=== PATIENT | female | born 1960 | race Caucasian/White ===

== ENCOUNTER 2016-04-01 01:22 | Emergency (ER) | payer MEDICAID ==
[~2016-04-01] VITALS: Ht 157.5 cm; Wt 63.0 kg
[~2016-04-01 01:22] MED LIST: ARIP30 PO; ATOR40TA PO; CYCL-36 PO; IBUP-232 PO; JANU50TA9 PO; LISI-357 PO; LORA0.5T PO; TRAZ100 PO; ZOLP10TA3 PO
[2016-04-01 01:25] VITALS: BP 146/68; PULSE 59; RESP 20; TEMP 97.4; O2SAT 100
[2016-04-01] MEDS ORDERED: BENZTROPINE MESYLATE 2 MG/2 ML VIAL IM ONE (03:00)
[2016-04-01] MEDS ORDERED: HYDROmorphone HCL PF 1 MG/ML VIAL IM ONE (03:00)
--- NOTE | 2016-04-01 03:33 | PD ---
HPI Chief Complaint: Pain: Acute or Chronic Time Seen by Provider: 02:41 Travel History International Travel<30 days: No Contact w/Intl Traveler<30days: No Traveled to known affect area: No History of Present Illness HPI This is a 55-year-old female who has a history of schizophrenia who presents to the emergency department with severe left-sided neck pain that started earlier this evening, constant, unable to move her neck to the right side, radiating to her shoulder and her upper chest. She's never had pain like this before. She is on medications for her psychiatric disease but isn't sure which ones. She denies any injury. He took Tylenol and ibuprofen at home but that didn't help. PFSH Past Medical History Hx Anticoagulant Therapy: No Bipolar Disorder: Yes Anxiety: Yes Depression: Yes Cardiovascular Problems: Yes (HTN) High Cholesterol: Yes Chemotherapy: No Cerebrovascular Accident: No Diabetes: Yes Patient Takes Glucophage: Yes Diminished Hearing: No Hypertension: Yes Psychiatric: Yes (schizophrenia) Respiratory: No Immunizations Current: Yes ?: Not LMP: TUBAL Past Surgical History Cholecystectomy: Yes Hysterectomy: No Social History Alcohol Use: No Tobacco Use: No Substance Use: No Allergies-Medications (Allergen,Severity, Reaction): Coded Allergies: Codeine (Verified Adverse Reaction, Intermediate, hives, 04/01/16) Reported Meds & Prescriptions Reported Meds & Active Scripts Active Flexeril (Cyclobenzaprine HCl) 10 Mg Tab 10 Mg PO TID Motrin (Ibuprofen) 600 Mg Tab 600 Mg PO QID PRN GIVE WITH FOOD Reported Lorazepam 0.5 Mg Tab 0.5 Mg PO BID Trazodone Hcl (Trazodone HCl) 100 Mg Tab 150 Mg PO HS Janumet (Sitagliptin Phosphate/Metformin HCl) 1 Tab Tab 1 Tab PO BID ADMINISTER WITH MEALS Atorvastatin 40 mg (Atorvastatin Calcium) 40 Mg Tab 40 Mg PO HS Zolpidem Tartrate 10 Mg Tab 10 Mg PO HS Lisinopril 5 mg (Lisinopril) 5 Mg Tab 40 Mg PO DAILY Abilify 30 mg (Aripiprazole) 30 Mg Tab 30 Mg PO HS Review of Systems Except as stated in HPI: all other systems reviewed are Neg Physical Exam Narrative GENERAL: Well-nourished, well-developed patient. SKIN: Warm and dry. HEAD: Normocephalic. EYES: No scleral icterus. No injection or drainage. NECK: Supple, trachea midline. CARDIOVASCULAR: Regular rate and rhythm without murmurs. RESPIRATORY: Breath sounds equal bilaterally. No accessory muscle use. GASTROINTESTINAL: Abdomen soft, non-tender, nondistended. MUSCULOSKELETAL: Marked tender to light touch over the left paracervical muscles and upper left trapezius. Neck is rotated to the left and patient is unable to return her neck to midline. Data Data Last Documented VS Vital Signs Date Time Temp Pulse Resp B/P Pulse Ox O2 Delivery O2 Flow Rate FiO2 04/01/16 02:10 59 20 04/01/16 01:25 97.4 146/68 100 Room Air Orders Benztropine Inj (Cogentin Inj) (04/01/16 03:00) Hydromorphone Pf Inj (Dilaudid Pf Inj) (04/01/16 03:00) [facility] Medical Decision Making Medical Screen Exam Complete: Yes Emergency Medical Condition: Yes Interpretation(s) Afebrile, no tachycardia, mild hypertension Differential Diagnosis Muscle spasm, torticollis, cervical strain Narrative Course This is a 55-year-old female who presents to the emergency department with pain on the left side of her neck and some difficulty moving her neck. She doesn't history of schizophrenia and from what I can tell from prior visits is on Abilify. She was given a dose of IM Dilaudid as well as IM benztropine for possible torticollis. Patient's symptoms improved significantly. She'll be discharged on pain control and benztropine Diagnosis Primary Impression: Torticollis, acute Patient Instructions: General Instructions Additional Instructions: If you develop severe chest pain, shortness of breath, sweating, lightheadedness , dizziness or difficulty breathing return to the emergency department immediately. Followup with your primary care physician in 2-3 days if your symptoms are not resolved. Med/Other Pt SpecificInfo: Prescription(s) given Scripts Naproxen 500 Mg [id number] Mg PO BID PRN (PAIN SCALE 4 TO 10) #20 TAB Ref 0 Prov:Marquita Escalante MD 04/01/16 Benztropine 1 Mg Tab1 Mg PO BID 7 Days Ref 0 Prov:Marqutia Escalante MD 04/01/16 Disposition: 01 DISCHARGE HOME Condition: Stable Marquita Escalante MD Apr 01, 2016 03:33
[2016-04-01] MEDS ORDERED: BENZ1TAB PO (03:47)
[2016-04-01] MEDS ORDERED: NAPR500T PO (03:47)
== END 2016-04-01 04:16 | disposition home or self-care (01) ==
LOC: NEPC 01:22
DX: M43.6 Torticollis (principal); I10 Essential (primary) hypertension; E11.9 Type 2 diabetes mellitus without complications; E78.00 Pure hypercholesterolemia, unspecified; Z86.59 Personal history of other mental and behavioral disorders; Z79.84 Long term (current) use of oral hypoglycemic drugs
CPT/HCPCS: 96372; 99283; J0515; J1170

== ENCOUNTER 2016-04-24 10:37 | Emergency (ER) | payer MEDICAID ==
[~2016-04-24] VITALS: Ht 157.5 cm; Wt 66.0 kg
[~2016-04-24 10:37] MED LIST changes: +BENZ1TAB PO; +NAPR500T PO
[2016-04-24 10:38] VITALS: BP 133/59; PULSE 84; RESP 14; TEMP 97.9; O2SAT 98
--- NOTE | 2016-04-24 11:02 | PD ---
HPI Chief Complaint: Pain: Acute or Chronic Time Seen by Provider: 11:02 Travel History International Travel<30 days: No Contact w/Intl Traveler<30days: No Traveled to known affect area: No History of Present Illness HPI 55-year-old female presents to the emergency Department with complaint of left wrist pain times one week. Denies injury or strain. Denies paresthesias, loss of sensation, decreased range of motion to the affected extremity. 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 Denies fever, chills, nausea, vomiting. Does not work and denies using her left hand, wrist excessively. Pain is aggravated when doing housework, such as dishes. Pain is aggravated with palpation and movement. No known relieving factors. Has tried taking Advil with no relief of symptoms. Has not tried any other treatments or medications to alleviate her symptoms. Dr. Maza is primary care provider. Allergies to codeine. History of diabetes, hypertension, high cholesterol. No other modifying factors or associated signs and symptoms. PFSH Past Medical History Hx Anticoagulant Therapy: No Bipolar Disorder: Yes Anxiety: Yes Depression: Yes Cardiovascular Problems: Yes (HTN) High Cholesterol: Yes Chemotherapy: No Cerebrovascular Accident: No Diabetes: Yes Diminished Hearing: No Hypertension: Yes Psychiatric: Yes (schizophrenia) Respiratory: No Immunizations Current: Yes ?: Not Past Surgical History Cholecystectomy: Yes Hysterectomy: No Social History Alcohol Use: No Tobacco Use: No Substance Use: No Allergies-Medications (Allergen,Severity, Reaction): Coded Allergies: Codeine (Verified Adverse Reaction, Intermediate, hives, 04/24/16) Reported Meds & Prescriptions Reported Meds & Active Scripts Active Ibuprofen 800 Mg Tab 800 Mg PO Q6HR PRN Review of Systems Except as stated in HPI: all other systems reviewed are Neg Physical Exam Narrative GENERAL: Well-nourished, well-developed female patient, in no acute distress; afebrile, nontoxic-appearing SKIN: Warm and dry. HEAD: Atraumatic. Normocephalic. EYES: Pupils equal and round. No scleral icterus. No injection or drainage. ENT: Mucosa pink and moist. Airway patent. NECK: Trachea midline. CARDIOVASCULAR: Regular rate. RESPIRATORY: No accessory muscle use. GASTROINTESTINAL: Flat. MUSCULOSKELETAL: Left wrist is mildly edematous to the lateral aspect and with tenderness on palpation; without erythema, ecchymosis; no obvious deformity; decreased lawn care technician strength; with full range of motion. Left upper extremity is supple and non-tense with 2+ radial pulse and sensory intact. No obvious deformities. No clubbing. No cyanosis. NEUROLOGICAL: Awake and alert. Oriented 3. No obvious cranial nerve deficits. Motor grossly within normal limits. Normal speech. PSYCHIATRIC: Appropriate mood and affect; insight and judgment normal. Data Data Last Documented VS Vital Signs Date Time Temp Pulse Resp B/P Pulse Ox O2 Delivery O2 Flow Rate FiO2 04/24/16 10:38 97.9 84 14 133/59 98 Orders Wrist, Complete ([id number]) (04/24/16 10:58) Ibuprofen (Motrin) (04/24/16 11:15) Splint Or Brace Apply/Monitor (04/24/16 11:54) [facility] Medical Decision Making Medical Screen Exam Complete: Yes Emergency Medical Condition: Yes Medical Record Reviewed: Yes Differential Diagnosis Arthritis, carpal tunnel, wrist sprain Narrative Course 55-year-old female with left wrist pain and denies known injury. Left approximately supple and non-tense with 2+ radial pulse and sensory intact. Ibuprofen ordered. Left wrist x-ray ordered. 1156: Left wrist x-ray concludes mild osteoarthritis of the radiocarpal, triscaphe, first carpometacarpal and distal radioulnar joints. Wrist splint ordered. Ibuprofen prescribed for home. Patient is medically cleared and stable for discharge. Discussed reasons to return to the emergency department. Instructed patient to follow up with primary care provider. Patient agrees with treatment plan. The patients vital signs are stable and the patient is stable for outpatient follow-up and treatment. Patient discharged home, stable and in no acute distress. Diagnosis Primary Impression: Osteoarthritis of left wrist Qualified Code: M19.032 - Osteoarthritis of left wrist, unspecified osteoarthritis type Referrals: Primary Care Physician Patient Instructions: General Instructions, Osteoarthritis (ED) Additional Instructions: Tylenol or ibuprofen as directed and as needed to reduce pain Rest, ice, compress, and elevate extremity to decrease pain and inflammation Wrist Splint for support Avoid aggravating activity; increase activity as tolerated Follow-up with primary care provider Return to the emergency department immediately with worsening symptoms Med/Other Pt SpecificInfo: Prescription(s) given Scripts Ibuprofen 800 Mg [id number] Mg PO Q6HR PRN (PAIN) #30 TAB Ref 0 Prov:Ana Cristina Ozuna 04/24/16 Disposition: 01 DISCHARGE HOME Condition: Stable Ana Cristina Ozuna Apr 24, 2016 11:02
[2016-04-24] MEDS ORDERED: IBUPROFEN 800 MG TAB PO ONE (11:15)
--- NOTE | 2016-04-24 11:46 | RADRPT ---
EXAM DATE/TIME: 04/24/2016 11:36 [facility] COMPARISON: No previous studies available for comparison. INDICATIONS : Left wrist pain, swelling for 3 days with no known injury MEDICAL HISTORY : None. SURGICAL HISTORY : None. ENCOUNTER: Initial ACUITY: 3 days PAIN SCORE: 7/10 LOCATION: Left entire wrist FINDINGS: Bones of the left wrist are intact and normally aligned. There is mild osteoarthritis of the radiocar pal, triscaphe, first carpometacarpal and distal radioulnar joints. No erosions are seen. Radiographi c appearance of the soft tissues within normal limits. CONCLUSION: Minimal degenerative changes as above. Otherwise normal radiographic appearance of the left wrist. Isreal Lima MD on April 24, 2016 at 11:43 Board Certified Radiologist. This report was verified electronically.
[2016-04-24] MEDS ORDERED: IBUP800T23 PO (11:56)
== END 2016-04-24 12:18 | disposition home or self-care (01) ==
LOC: NEPB 10:37
DX: M19.032 Primary osteoarthritis, left wrist (principal); I10 Essential (primary) hypertension; E78.00 Pure hypercholesterolemia, unspecified; E11.9 Type 2 diabetes mellitus without complications
CPT/HCPCS: 73110; 99283; L3908

== ENCOUNTER 2016-07-20 16:41 | Emergency (ER) | payer MEDICAID ==
[~2016-07-20] VITALS: Ht 157.5 cm; Wt 68.0 kg
[~2016-07-20 16:41] MED LIST changes: -ARIP30 PO; -ATOR40TA PO; -BENZ1TAB PO; -CYCL-36 PO; -IBUP-232 PO; +IBUP800T23 PO; -JANU50TA9 PO; -LISI-357 PO; -LORA0.5T PO; -NAPR500T PO; -TRAZ100 PO; -ZOLP10TA3 PO
[2016-07-20 16:44] VITALS: BP 138/61; PULSE 70; RESP 16; TEMP 98.8; O2SAT 99
--- NOTE | 2016-07-20 16:52 | PD ---
Physical Exam Time Seen by Provider: 16:50 Narrative 56 y/o female here with 5 days of abdominal pain, n/v/d. Sent by her physician for evaluation. Vital signs reviewed. Seen at triage desk. Awaiting bed placement. Data Data Last Documented VS Vital Signs Date Time Temp Pulse Resp B/P Pulse Ox O2 Delivery O2 Flow Rate FiO2 07/20/16 16:44 98.8 70 16 138/61 99 MDM Medical Record Reviewed: Yes Supervised Visit with KOLTON: Ryne Ann July 20, 2016 16:52
[2016-07-20] MEDS ORDERED: [UNRECOGNIZED DRUG - REMARK] (17:28)
[2016-07-20] MEDS ORDERED: LANTUS2P SQ (17:28)
[2016-07-20] MEDS ORDERED: SODIUM CHLORIDE 0.9% FLUSH 10 ML FLUSH IV FLUSH PRN ×2 (17:30→17:45)
[2016-07-20] MEDS ORDERED: SODIUM CHLOR 0.9% 1000 ML INJ 1,000 ML IV SCH (17:41)
[2016-07-20] MEDS ORDERED: MORPHINE SULFATE 4 MG/ML INJ IV PUSH ONE (17:45)
[2016-07-20] MEDS ORDERED: ONDANSETRON HCL 4 MG/2 ML VIAL IVP ONE (17:45)
--- NOTE | 2016-07-20 18:09 | PD ---
HPI . Abdominal pain Chief Complaint: Abdominal Pain Time Seen by Provider: 17:28 Travel History International Travel<30 days: No Contact w/Intl Traveler<30days: No Traveled to known affect area: No History of Present Illness HPI Patient presents complaining with a 4-5 day history of left-sided abdominal and flank pain. He describes the pain is intermittent. She rates it as 7/10. Pain is associated with nausea and diarrhea. Pain is exacerbated by eating. No relieving factors. She describes her diarrhea as watery and states that she has 4-5 episodes per day. She has had a subjective fever as well as headache. She denies urinary tract symptoms such as dysuria, frequency or urgency. PFSH Past Medical History Hx Anticoagulant Therapy: No Bipolar Disorder: Yes Anxiety: Yes Depression: Yes Cardiovascular Problems: Yes (HTN) High Cholesterol: Yes Chemotherapy: No Cerebrovascular Accident: No Diabetes: Yes Patient Takes Glucophage: No Diminished Hearing: No Hypertension: Yes Psychiatric: Yes (schizophrenia) Respiratory: No Immunizations Current: Yes ?: Not Menopausal: Yes Past Surgical History Cholecystectomy: Yes Hysterectomy: No Social History Alcohol Use: No Tobacco Use: No Substance Use: No Allergies-Medications (Allergen,Severity, Reaction): Coded Allergies: Codeine (Verified Adverse Reaction, Intermediate, hives, 07/20/16) Reported Meds & Prescriptions Reported Meds & Active Scripts Active Reported [unk cholesterol] HS Lantus Inj (Insulin Glargine) 1,000 Unit/10 Ml Vial 35 Units SQ HS Review of Systems Except as stated in HPI: all other systems reviewed are Neg General / Constitutional: Positive: Fever, Chills HENT: Positive: Headaches Gastrointestinal: Positive: Nausea, Diarrhea, Abdominal Pain, No: Vomiting Genitourinary: Positive: Flank Pain, No: Urgency, Frequency, Dysuria Physical Exam Narrative Vital Signs Date Time Temp Pulse Resp B/P Pulse Ox O2 Delivery O2 Flow Rate FiO2 07/20/16 16:44 98.8 70 16 138/61 99 GENERAL: Awake and alert and in no acute distress. SKIN: Warm and dry. HEAD: Atraumatic. Normocephalic. EYES: Pupils equal and round. Sclera are anicteric. ENT: No nasal bleeding or discharge. Mucous membranes pink and moist. NECK: Trachea midline. Neck is supple. CARDIOVASCULAR: Regular rate and rhythm. Heart sounds are normal. RESPIRATORY: No accessory muscle use. Lungs are clear with full air movement throughout. GASTROINTESTINAL: Abdomen soft. Diffuse left-sided abdominal tenderness. No guarding or rebound. Normal bowel sounds. Nondistended. No left CVA tenderness. MUSCULOSKELETAL: No obvious deformities. No edema. NEUROLOGICAL: Awake and alert. No obvious cranial nerve deficits. Motor grossly within normal limits. Normal speech. PSYCHIATRIC: Appropriate mood and affect; insight and judgment normal. Data Data Last Documented VS Vital Signs Date Time Temp Pulse Resp B/P Pulse Ox O2 Delivery O2 Flow Rate FiO2 07/20/16 19:02 100 Room Air 07/20/16 16:44 98.8 70 16 138/61 Orders Complete Blood Count With Diff (07/20/16 17:29) Comprehensive Metabolic Panel (07/20/16 17:29) Lipase (07/20/16 17:29) Urinalysis - C+S If Indicated (07/20/16 17:29) Iv Access Insert/Monitor (07/20/16 17:29) Ecg Monitoring (07/20/16 17:29) Oximetry (07/20/16 17:29) Sodium Chloride 0.9% Flush (Ns Flush) (07/20/16 17:30) Ct Abd/Pel W Iv Contrast(Rout) (07/20/16 17:41) Morphine Inj (Morphine Inj) (07/20/16 17:45) Ondansetron Inj (Zofran Inj) (07/20/16 17:45) Sodium Chlor 0.9% 1000 Ml Inj (Ns 1000 M (07/20/16 17:41) Sodium Chloride 0.9% Flush (Ns Flush) (07/20/16 17:45) Ceftriaxone Inj (Rocephin Inj) (07/20/16 19:30) Labs Laboratory Tests Test 07/20/16 17:44 White Blood Count 9.2 TH/MM3 Red Blood Count 4.54 MIL/MM3 Hemoglobin 12.4 GM/DL Hematocrit 37.6 % Mean Corpuscular Volume 82.9 FL Mean Corpuscular Hemoglobin 27.4 PG Mean Corpuscular Hemoglobin 33.1 % Concent Red Cell Distribution Width 13.3 % Platelet Count 304 TH/MM3 Mean Platelet Volume 8.5 FL Neutrophils (%) (Auto) 42.7 % Lymphocytes (%) (Auto) 45.1 % Monocytes (%) (Auto) 6.1 % Eosinophils (%) (Auto) 5.5 % Basophils (%) (Auto) 0.6 % Neutrophils # (Auto) 3.9 TH/MM3 Lymphocytes # (Auto) 4.2 TH/MM3 Monocytes # (Auto) 0.6 TH/MM3 Eosinophils # (Auto) 0.5 TH/MM3 Basophils # (Auto) 0.1 TH/MM3 CBC Comment DIFF FINAL Differential Comment Urine Color YELLOW Urine Turbidity CLEAR Urine pH 6.0 Urine Specific [place] 1.015 Urine Protein NEG mg/dL Urine Glucose (UA) NEG mg/dL Urine Ketones NEG mg/dL Urine Occult Blood NEG Urine Nitrite NEG Urine Bilirubin NEG Urine Urobilinogen LESS THAN 2.0 MG/DL Urine Leukocyte Esterase MOD Urine RBC LESS THAN 1 /hpf Urine WBC 6 /hpf Urine Squamous Epithelial 4 /hpf Cells Urine Mucus FEW /lpf Microscopic Urinalysis Comment CULT NOT INDICATED Sodium Level 136 MEQ/L Potassium Level 3.6 MEQ/L Chloride Level 101 MEQ/L Carbon Dioxide Level 28.0 MEQ/L Anion Gap 7 MEQ/L Blood Urea Nitrogen 8 MG/DL Creatinine 0.64 MG/DL Estimat Glomerular Filtration 96 ML/MIN Rate Random Glucose 202 MG/DL Calcium Level 8.4 MG/DL Total Bilirubin 0.5 MG/DL Aspartate Amino Transf 14 U/L (AST/SGOT) Alanine Aminotransferase 25 U/L (ALT/SGPT) Alkaline Phosphatase 92 U/L Total Protein 7.5 GM/DL Albumin 3.4 GM/DL Lipase 159 U/L [facility] Medical Decision Making Medical Screen Exam Complete: Yes Emergency Medical Condition: Yes Differential Diagnosis Differential diagnosis of abdominal pain includes but is not limited to gastritis, pancreatitis, hepatitis, gastroenteritis, gallbladder disease, constipation, urinary retention, UTI, peptic ulcer disease, diverticulitis or appendicitis Narrative Course Patient presents complaining of left-sided abdominal pain associated with loose stools. My #1 diagnosis at this time is diverticulitis. I have ordered IV fluids, IV analgesics routine labs and a CT of her abdomen/pelvis. Last Impressions Abdomen/Pelvis CT 07/20/16 1741 Signed Impressions: Service Date/Time: Wednesday, July 20, 2016 18:19 - CONCLUSION: 1. No acute findings. Specifically no bowel obstruction. No obstructive uropathy. Colonic diverticula without evidence for diverticulitis. Rubén Naranjo MD CBC & BMP Diagram 07/20/16 17:44 LFTs are normal. UA is positive for leukocyte esterase. There are 6 white cells. She will be treated for UTI. Diagnosis Primary Impression: Abdominal pain Qualified Code: R10.12 - Left upper quadrant pain Additional Impression: UTI (urinary tract infection) Qualified Code: N30.00 - Acute cystitis without hematuria Patient Instructions: Abdominal Pain (ED), Acute Diarrhea (ED), General Instructions, Urinary Tract Infection in Women (DC) Med/Other Pt SpecificInfo: Prescription(s) given Scripts Nitrofurantoin Monohydrate Macrocrystals (Macrobid)100 Mg [id number] Mg PO BID 7 Days Ref 0 Prov:Mel Aranda MD 07/20/16 Disposition: 01 DISCHARGE HOME Condition: Stable Mel Aranda MD July 20, 2016 18:09
[2016-07-20] MEDS ORDERED: IOHEXOL 350 MG/ML 10 ML VIAL (for RAD DIAG) IV ONE (18:19)
--- NOTE | 2016-07-20 18:54 | RADRPT ---
EXAM DATE/TIME: 07/20/2016 18:19 [facility] COMPARISON: No previous studies available for comparison. INDICATIONS : Left flank and lower quadrant pain. IV CONTRAST: 70 cc Omnipaque 350 (iohexol) IV ORAL CONTRAST: No oral contrast ingested. RADIATION DOSE: 6.97 CTDIvol (mGy) MEDICAL HISTORY : Cardiovascular disease. Hypertension. Diabetes mellitus type 2. SURGICAL HISTORY : Cholecystectomy. Tubal ligation. ENCOUNTER: Initial ACUITY: 4 - 6 days PAIN SCALE: 8/10 LOCATION: Left flank lower qaudrant TECHNIQUE: Volumetric scanning of the abdomen and pelvis was performed. Using automated exposure control and ad justment of the mA and/or kV according to patient size, radiation dose was kept as low as reasonably achievable to obtain optimal diagnostic quality images. FINDINGS: Lung bases are clear. No significant abnormality in the liver, spleen, adrenals, kidneys or pancreas. Previous cholecystectomy. No pelvic masses. No adenopathy. There is no free fluid. No bowel obstruction. Colonic diverticula wi thout diverticulitis. CONCLUSION: 1. No acute findings. Specifically no bowel obstruction. No obstructive uropathy. Colonic diverticula without evidence for diverticulitis. Rubén Naranjo MD on July 20, 2016 at 18:49 Board Certified Radiologist. This report was verified electronically.
[2016-07-20 19:00] LABS: AUTOMATED NEUTROPHIL # 3.9 TH/MM3 (1.8-7.7); BASOPHIL # 0.1 TH/MM3 (0-0.2); BASOPHIL % 0.6 % (0.0-2.0); EOSINOPHIL # 0.5 TH/MM3 (0-0.4); EOSINOPHIL % 5.5 % (0.0-4.0); HEMATOCRIT 37.6 % (35.0-46.0); HEMO FLAGS DIFF FINAL; LYMPH % 45.1 % (9.0-44.0); LYMPHOCYTE # 4.2 TH/MM3 (1.0-4.8); MEAN CELL VOLUME 82.9 FL (80.0-100.0); MEAN CORPUSCULAR HEMOGLOBIN 27.4 PG (27.0-34.0); MEAN CORPUSCULAR HGB CONC 33.1 % (32.0-36.0); MONO % 6.1 % (0.0-8.0); NEUT % 42.7 % (16.0-70.0); PLATELET COUNT 304 TH/MM3 (150-450); RED BLOOD COUNT 4.54 MIL/MM3 (4.00-5.30); RED CELL DISTRIBUTION WIDTH 13.3 % (11.6-17.2); WHITE BLOOD COUNT 9.2 TH/MM3 (4.0-11.0)
[2016-07-20 19:02] VITALS: O2SAT 100
[2016-07-20 19:14] LABS: BLOOD, URINE NEG (NEG); COMMENT (UR) CULT NOT INDICATED; CULTURE IF INDICATED CULT NOT INDICATED; GLUCOSE,URINE NEG (NEG); KETONE, URINE NEG (NEG); MUCUS URINE FEW /lpf (OCC); NITRITE,URINE NEG (NEG); SQUAMOUS EPITHELIAL CELL URINE 4 /hpf (0-5); URINE COLOR YELLOW (YELLW/STRAW)
[2016-07-20 19:18] LABS: ANION GAP 7 MEQ/L (5-15); AST (GOT) 14 U/L (15-37); BLOOD UREA NITROGEN 8 MG/DL (7-18); CHLORIDE 101 MEQ/L (98-107); GLOMERULAR FILTRATION RATE 96 ML/MIN (>89); POTASSIUM 3.6 MEQ/L (3.5-5.1); SODIUM (NA) 136 MEQ/L (136-145)
[2016-07-20 19:22] LABS: ALKALINE PHOSPHATASE 92 U/L (45-117); ALT (GPT) 25 U/L (10-53); TOTAL BILIRUBIN ADULT 0.5 MG/DL (0.2-1.0)
[2016-07-20] MEDS ORDERED: MACR100C2 PO (19:26)
[2016-07-20] MEDS ORDERED: cefTRIAXone INJ 1,000 MG in SODIUM CHLORIDE 0.9% INJ 25 ML IV ONE (19:45)
[2016-07-20 20:00] VITALS: BP 137/60; PULSE 70; RESP 16; O2SAT 96
== END 2016-07-20 20:21 | disposition home or self-care (01) ==
LOC: NEPD 16:41
DX: R10.9 Unspecified abdominal pain (principal); N39.0 Urinary tract infection, site not specified; I10 Essential (primary) hypertension; E11.9 Type 2 diabetes mellitus without complications; Z79.4 Long term (current) use of insulin
CPT/HCPCS: 74177; 80053; 81001; 83690; 85025; 96374; 96375; 99284; J0696; J2270; J2405; J7030; Q9967

== ENCOUNTER 2016-07-28 19:18 | Emergency (ER) | payer MEDICAID ==
[~2016-07-28] VITALS: Ht 167.6 cm; Wt 65.0 kg
[~2016-07-28 19:18] MED LIST changes: -IBUP800T23 PO; +LANTUS2P SQ; +MACR100C2 PO; +[UNRECOGNIZED DRUG - REMARK]
[2016-07-28 19:19] VITALS: BP 144/66; PULSE 66; RESP 15; TEMP 98.5; O2SAT 98
--- NOTE | 2016-07-28 19:31 | PD ---
HPI . left groin and leg pain x 1 day Chief Complaint: Musculoskeletal Complaint Time Seen by Provider: 19:31 Travel History International Travel<30 days: No Contact w/Intl Traveler<30days: No Traveled to known affect area: No History of Present Illness HPI 56-year-old female with diabetes here with complaints of left leg/groin pain. Patient says it just started over the blue. She reports a jolting sensation that is running down her leg. She tells me she has not tried any medications to improve this pain. She denies any recent injury. She denies any recent travel or shortness of breath. She has no leg swelling. She tells me that she is not taking anything for pain. PFSH Past Medical History Hx Anticoagulant Therapy: No Bipolar Disorder: Yes Anxiety: Yes Depression: Yes Cardiovascular Problems: Yes (HTN) High Cholesterol: Yes Chemotherapy: No Cerebrovascular Accident: No Diabetes: Yes Patient Takes Glucophage: Yes Diminished Hearing: No Hypertension: Yes Psychiatric: Yes (schizophrenia) Respiratory: No Immunizations Current: Yes Tetanus Vaccination: Unknown Influenza Vaccination: No Menopausal: Yes Past Surgical History Cholecystectomy: Yes Hysterectomy: No Social History Alcohol Use: No Tobacco Use: No Substance Use: No Allergies-Medications (Allergen,Severity, Reaction): Coded Allergies: Codeine (Verified Adverse Reaction, Intermediate, hives, 07/28/16) Reported Meds & Prescriptions Reported Meds & Active Scripts Active Medrol Dosepak (Methylprednisolone) 4 Mg Dspk 4 Mg PO DIRECTED Per Pharmacist direction Reported Janumet (Sitagliptin-Metformin) 50-500 Mg Tab 2 Tab PO DAILY [unk cholesterol] HS Lantus Inj (Insulin Glargine) 1,000 Unit/10 Ml Vial 35 Units SQ HS Review of Systems General / Constitutional: No: Fever Eyes: No: Visual changes HENT: No: Headaches Cardiovascular: No: Chest Pain or Discomfort Respiratory: No: Shortness of Breath Gastrointestinal: No: Abdominal Pain Genitourinary: No: Dysuria Musculoskeletal: Positive: Pain (left leg pain) Skin: No Rash Neurologic: No: Weakness Psychiatric: No: Depression Endocrine: No: Polydipsia Hematologic/Lymphatic: No: Easy Bruising Physical Exam Narrative GENERAL: AAO x 3, no acute distress, Well-nourished, well-developed patient. SKIN: Warm and dry. No visible rashes or bruising. HEAD: Normocephalic and atraumatic. EYES: No scleral icterus. No injection or drainage. EOM intact, PERRLA ENT: No nasal drainage noted. Mucous membranes pink. Airway patent. NECK: Supple, trachea midline. No JVD. CARDIOVASCULAR: Regular rate and rhythm without murmurs, gallops, or rubs. RESPIRATORY: Breath sounds equal bilaterally. No accessory muscle use. No rhonchi or rales. GASTROINTESTINAL: visual inspection normal EXTREMITIES: No cyanosis or edema. SLR + left side, FULL ROM b/l legs NEURO: strength 5/5 LE BACK: Nontender without obvious deformity. No CVA tenderness. PSYCH: AAO x 3, normal affect. Data Data Last Documented VS Vital Signs Date Time Temp Pulse Resp B/P Pulse Ox O2 Delivery O2 Flow Rate FiO2 07/28/16 19:27 16 07/28/16 19:19 98.5 66 144/66 98 Room Air MDM Medical Decision Making Medical Screen Exam Complete: Yes Emergency Medical Condition: Yes Medical Record Reviewed: Yes Differential Diagnosis acute on chronic pain, sciatica, drug seeking, Narrative Course This is a 56-year-old female complaining of acute groin and left leg pain. Denies any recent injury, travel or shortness of breath. My index of suspicion is very low for DVT. Exam reveals sciatica. I discussed with her and recommend steroids. We discussed increased blood sugars. Initially upon questioning patient tells me she is not taking any pain medications. I look her up on [employer] and she was given 90 tabs of oxycodone on 07/06/16. When I discuss with her she says that doesn't matter because she is using that for her back and this is something different. I explained that pain meds will work for any pain. She tells me she did not know that. I recommend f/u with her PCP. Diagnosis Primary Impression: Sciatica Qualified Code: M54.32 - Sciatica of left side Patient Instructions: General Instructions Additional Instructions: Please return to emergency department if your symptoms return or worsen. Follow up with your primary care provider. Take medications as prescribed. Follow-up with your primary care provider. The steroids will make your blood sugars increase, try to compensate by eating less carbs or ask your Primary care provider for sliding scale coverage. Med/Other Pt SpecificInfo: Prescription(s) given Scripts Methylprednisolone Dosepak (Medrol Dosepak)4 Mg Dspk4 Mg PO DIRECTED #1 DSPK Ref 0 Per Pharmacist direction Prov:Michael Lester MD 07/28/16 Disposition: 01 DISCHARGE HOME Condition: Stable Prachi Real July 28, 2016 19:31
[2016-07-28] MEDS ORDERED: SITA1TAB2 PO (19:33)
[2016-07-28] MEDS ORDERED: JANU50TA4 PO (19:33)
[2016-07-28] MEDS ORDERED: MEDR4PAK PO (19:40)
== END 2016-07-28 19:55 | disposition home or self-care (01) ==
LOC: NEPK 19:18
DX: M54.32 Sciatica, left side (principal)
CPT/HCPCS: 99283

== ENCOUNTER 2016-12-30 12:23 | Emergency (ER) | payer MEDICAID ==
[~2016-12-30] VITALS: Ht 157.5 cm; Wt 67.0 kg
[~2016-12-30 12:23] MED LIST changes: +JANU50TA4 PO; -MACR100C2 PO; +MEDR4PAK PO
[2016-12-30 12:28] VITALS: BP 145/64; PULSE 79; RESP 12; TEMP 98.6; O2SAT 97
[2016-12-30] MEDS ORDERED: cholesterol med PO ×2 (12:45)
[2016-12-30 12:49] VITALS: BP 136/86; PULSE 73; RESP 16; O2SAT 97
[2016-12-30] MEDS ORDERED: ARIP1TAB5 PO ×2 (12:49)
--- NOTE | 2016-12-30 12:49 | PD ---
HPI Chief Complaint: Chest Pain Time Seen by Provider: 12:35 Travel History International Travel<30 days: No Contact w/Intl Traveler<30days: No Traveled to known affect area: No History of Present Illness HPI 56-year-old female complains of headache and chest pain. Patient states that she started having throbbing headache left-sided head is yesterday. Patient denies any visual change. Patient complains of nausea vomiting and photophobia with the headache. Patient denies any neck pain. Patient denies fever chills. Patient states that she started having left-sided chest pain since this morning. Patient states the chest pain as aching pain started in the left chest with radiation to the left arm. Patient denies any coughing congestion. Patient denies abdominal pain. Patient denies any focal weakness or numbness of extremity. Patient has history hypertension, diabetes, hyperlipidemia. Patient is a nonsmoker. Patient denies family history of heart disease. Patient denies history of CAD. Patient states that she had a stress test done a few years ago and was normal. PFSH Past Medical History Hx Anticoagulant Therapy: No Bipolar Disorder: Yes Anxiety: Yes Depression: Yes Cardiovascular Problems: Yes (HTN) High Cholesterol: Yes Chemotherapy: No Cerebrovascular Accident: No Diabetes: Yes Diminished Hearing: No Hypertension: Yes Psychiatric: Yes (schizophrenia) Respiratory: No Immunizations Current: Yes Menopausal: Yes Past Surgical History Cholecystectomy: Yes Hysterectomy: No Social History Alcohol Use: No Tobacco Use: No Substance Use: No Allergies-Medications (Allergen,Severity, Reaction): Coded Allergies: codeine (Unverified Adverse Reaction, Intermediate, hives, 12/30/16) Reported Meds & Prescriptions Reported Meds & Active Scripts Active Reported Abilify (Aripiprazole) 10 Mg Tab Unknown Dose PO DAILY [cholesterol med] Unknown Dose PO DAILY Janumet (Sitagliptin-Metformin) 50-500 Mg Tab 1 Tab PO DAILY Lantus Inj (Insulin Glargine) 1,000 Unit/10 Ml Vial 35 Units SQ HS Review of Systems General / Constitutional: No: Fever Eyes: No: Visual changes HENT: No: Headaches Cardiovascular: Positive: Chest Pain or Discomfort Respiratory: No: Shortness of Breath Gastrointestinal: No: Abdominal Pain Genitourinary: No: Dysuria Musculoskeletal: No: Pain Skin: No Rash Neurologic: No: Weakness Psychiatric: No: Depression Endocrine: No: Polydipsia Hematologic/Lymphatic: No: Easy Bruising Physical Exam Narrative GENERAL: Well-nourished, well-developed patient. SKIN: Focused skin assessment warm/dry. HEAD: Normocephalic. EYES: No scleral icterus. No injection or drainage. Pupils 2 mm equal reactive. NECK: Supple, trachea midline. No JVD or lymphadenopathy. No meningismus CARDIOVASCULAR: Regular rate and rhythm without murmurs, gallops, or rubs. RESPIRATORY: Breath sounds equal bilaterally. No accessory muscle use. GASTROINTESTINAL: Abdomen soft, non-tender, nondistended. MUSCULOSKELETAL: No cyanosis, or edema. Patient has reproducible left upper chest wall pain on palpation. No crepitus no deformity noted. BACK: Nontender without obvious deformity. No CVA tenderness. Neurologic exam normal. Data Data Last Documented VS Vital Signs Date Time Temp Pulse Resp B/P (MAP) Pulse Ox O2 Delivery O2 Flow Rate FiO2 12/30/16 14:03 72 136/70 (92) 99 12/30/16 12:49 16 Room Air 12/30/16 12:28 98.6 Orders Orders Electrocardiogram (12/30/16 13:01) Electrocardiogram (12/30/16 13:13) Complete Blood Count With Diff (12/30/16 13:13) Comprehensive Metabolic Panel (12/30/16 13:13) Creatine Kinase (Cpk) (12/30/16 13:13) Troponin I (12/30/16 13:13) Prothrombin Time / Inr (Pt) (12/30/16 13:13) Act Partial Throm Time (Ptt) (12/30/16 13:13) Chest, Single Ap (12/30/16 13:13) Ct Brain W/O Iv Contrast(Rout) (12/30/16 13:13) Iv Access Insert/Monitor (12/30/16 13:13) Ecg Monitoring (12/30/16 13:13) Oximetry (12/30/16 13:13) C-Reactive Protein (Crp) (12/30/16 13:14) Westergren Sedimentation Rate (12/30/16 13:14) Morphine Inj (Morphine Inj) (12/30/16 13:30) Ondansetron Inj (Zofran Inj) (12/30/16 13:30) Labs Laboratory Tests Test 12/30/16 13:05 White Blood Count 10.0 TH/MM3 Red Blood Count 4.95 MIL/MM3 Hemoglobin 13.8 GM/DL Hematocrit 41.1 % Mean Corpuscular Volume 83.0 FL Mean Corpuscular Hemoglobin 27.9 PG Mean Corpuscular Hemoglobin Concent 33.7 % Red Cell Distribution Width 13.4 % Platelet Count 316 TH/MM3 Mean Platelet Volume 9.0 FL Neutrophils (%) (Auto) 49.8 % Lymphocytes (%) (Auto) 40.0 % Monocytes (%) (Auto) 4.7 % Eosinophils (%) (Auto) 4.3 % Basophils (%) (Auto) 1.2 % Neutrophils # (Auto) 5.0 TH/MM3 Lymphocytes # (Auto) 4.0 TH/MM3 Monocytes # (Auto) 0.5 TH/MM3 Eosinophils # (Auto) 0.4 TH/MM3 Basophils # (Auto) 0.1 TH/MM3 CBC Comment DIFF FINAL Differential Comment Erythrocyte Sedimentation Rate 9 mm/hr Prothrombin Time 10.0 SEC Prothromb Time International Ratio 0.9 RATIO Activated Partial Thromboplast Time 24.4 SEC Blood Urea Nitrogen 9 MG/DL Creatinine 0.52 MG/DL Random Glucose 146 MG/DL Total Protein 7.9 GM/DL Albumin 3.7 GM/DL Calcium Level 8.8 MG/DL Alkaline Phosphatase 103 U/L Aspartate Amino Transf (AST/SGOT) 27 U/L Alanine Aminotransferase (ALT/SGPT) 38 U/L Total Bilirubin 0.5 MG/DL Sodium Level 136 MEQ/L Potassium Level 3.9 MEQ/L Chloride Level 104 MEQ/L Carbon Dioxide Level 23.6 MEQ/L Anion Gap 8 MEQ/L Estimat Glomerular Filtration Rate 122 ML/MIN Total Creatine Kinase 121 U/L Troponin I LESS THAN 0.02 NG/ML C-Reactive Protein 0.78 MG/DL MDM Medical Decision Making Medical Screen Exam Complete: Yes Emergency Medical Condition: Yes Interpretation(s) Last Impressions Head CT 12/30/161312 Signed Impressions: Service Date/Time: December 13:38 - CONCLUSION: Negative noncontrast CT brain. Markos Gonzalez MD Chest X-Ray 12/30/161312 Signed Impressions: Service Date/Time: December 13:54 - CONCLUSION: The lungs are clear. Markos Gonzalez MD 1607 p.m. CBC within normal limit. Sedimentation rate 9. CMP within normal limit. Enzymes are normal. C-reactive protein 0.78. Differential Diagnosis Differential diagnosis including migraine negative, tension headache, cluster headache, chest wall pain, angina, CA, PE, pneumothorax. Narrative Course 56-year-old female with headache, left-sided chest pain. Diagnosis Primary Impression: Atypical chest pain Additional Impression: Cephalgia Qualified Codes: R51 - Headache Patient Instructions: General Instructions Additional Instructions: Take medications as needed for pain and headache. Follow-up with personal physician. Return if worse. Return immediately if increasing chest pain shortness of breath. Med/Other Pt SpecificInfo: Prescription(s) given Scripts Fgiohqqsbf-Rxvluafqnggnf-Ycymucbb (Fioricet) 50-300-40 Mg Cap 1-2 CAP PO Q6H Y for HEADACHE, #20 CAP 0 Refills Prov: Artur Urena MD 12/30/16 Meloxicam (Mobic) 15 Mg Tab 15 MG PO DAILY for Pain, #30 TAB 0 Refills Prov: Artur Urena MD 12/30/16 Disposition: 01 DISCHARGE HOME Condition: Stable Artur Urena MD Dec 30, 2016 12:49
[2016-12-30] MEDS ORDERED: MORPHINE SULFATE 2 MG/ML INJ IV PUSH ONE ×2 (13:30)
[2016-12-30] MEDS ORDERED: ONDANSETRON HCL 4 MG/2 ML VIAL IV PUSH ONE ×2 (13:30)
[2016-12-30 13:38] LABS: HEMATOCRIT 41.1 % (35.0-46.0); HEMOGLOBIN 13.8 GM/DL (11.6-15.3); MEAN CORPUSCULAR HEMOGLOBIN 27.9 PG (27.0-34.0); MEAN CORPUSCULAR HGB CONC 33.7 % (32.0-36.0); PLATELET COUNT 316 TH/MM3 (150-450); RED BLOOD COUNT 4.95 MIL/MM3 (4.00-5.30); RED CELL DISTRIBUTION WIDTH 13.4 % (11.6-17.2)
[2016-12-30 13:39] LABS: BASOPHIL # 0.1 TH/MM3 (0-0.2); BASOPHIL % 1.2 % (0.0-2.0); EOSINOPHIL # 0.4 TH/MM3 (0-0.4); EOSINOPHIL % 4.3 % (0.0-4.0); MONO % 4.7 % (0.0-8.0); MONOCYTE # 0.5 TH/MM3 (0-0.9); NEUT % 49.8 % (16.0-70.0)
[2016-12-30 13:49] LABS: INTERNATIONAL NORMALIZED RATIO 0.9 RATIO
[2016-12-30 13:54] LABS: ALBUMIN 3.7 GM/DL (3.4-5.0); ALT (GPT) 38 U/L (10-53); AST (GOT) 27 U/L (15-37); BICARBONATE 23.6 MEQ/L (21.0-32.0); BLOOD UREA NITROGEN 9 MG/DL (7-18); CALCIUM 8.8 MG/DL (8.5-10.1); CHLORIDE 104 MEQ/L (98-107); CREATININE 0.52 MG/DL (0.50-1.00); GLOMERULAR FILTRATION RATE 122 ML/MIN (>89); GLUCOSE,RANDOM 146 MG/DL (74-106); SODIUM (NA) 136 MEQ/L (136-145)
[2016-12-30 13:59] LABS: ALKALINE PHOSPHATASE 103 U/L (45-117); TOTAL BILIRUBIN ADULT 0.5 MG/DL (0.2-1.0); TOTAL PROTEIN 7.9 GM/DL (6.4-8.2); TROPONIN I LESS THAN 0.02 NG/ML (0.02-0.05)
[2016-12-30 14:03] VITALS: BP 136/70; PULSE 72; O2SAT 99
--- NOTE | 2016-12-30 14:23 | RADRPT ---
EXAM DATE/TIME: 12/30/2016 13:54 [facility] COMPARISON: No previous studies available for comparison. INDICATIONS : Headaches and chest pain. MEDICAL HISTORY : None. SURGICAL HISTORY : None. ENCOUNTER: Initial ACUITY: 3 days PAIN SCORE: 7/10 LOCATION: Bilateral chest FINDINGS: A single view of the chest demonstrates the lungs to be symmetrically aerated without evidence of mas s, infiltrate or effusion. The cardiomediastinal contours are unremarkable. Osseous structures are intact. CONCLUSION: The lungs are clear. Markos Gonzalez MD on December 30, 2016 at 14:21 Board Certified Radiologist. This report was verified electronically.
--- NOTE | 2016-12-30 14:41 | RADRPT ---
EXAM DATE/TIME: 12/30/2016 13:38 [facility] COMPARISON: No previous studies available for comparison. INDICATIONS : Headache for two days. RADIATION DOSE: 31.97 CTDIvol (mGy) MEDICAL HISTORY : Hypertension. Diabetes SURGICAL HISTORY : Tubal ligation. ENCOUNTER: Initial ACUITY: 2 days PAIN SCALE: 6/10 LOCATION: cranial TECHNIQUE: Multiple contiguous axial images were obtained of the head. Using automated exposure control and adj ustment of the mA and/or kV according to patient size, radiation dose was kept as low as reasonably a chievable to obtain optimal diagnostic quality images. DICOM format image data is available electro nically for review and comparison. FINDINGS: CEREBRUM: The ventricles are normal for age. No evidence of midline shift, mass lesion, hemorrhage or acute in farction. No extra-axial fluid collections are seen. POSTERIOR FOSSA: The cerebellum and brainstem are intact. The 4th ventricle is midline. The cerebellopontine angle i s unremarkable. EXTRACRANIAL: The visualized portion of the orbits is intact. SKULL: The calvaria is intact. No evidence of skull fracture. CONCLUSION: Negative noncontrast CT brain. Markos Gonzalez MD on December 30, 2016 at 14:39 Board Certified Radiologist. This report was verified electronically.
[2016-12-30 16:15] VITALS: BP 145/67; PULSE 88; RESP 16; O2SAT 99
[2016-12-30] MEDS ORDERED: BUTA1CAP PO ×2 (16:17)
[2016-12-30] MEDS ORDERED: MOBI15TA PO ×2 (16:17)
--- NOTE | 2016-12-30 23:28 | EKG ---
Date Performed: 12/30/2016 Time Performed: 12:59:20 PTAGE: 56 years EKG: Sinus rhythm NONSPECIFIC T-WAVE ABNORMALITY BORDERLINE ECG Compared to the PREVIOUS TRACING from 10/31/14 no significant change DOCTOR: Rajiv Avila Interpretating Date/Time 12/30/2016 23:28:03
== END 2016-12-30 17:03 | disposition home or self-care (01) ==
LOC: NEPC 12:23
DX: R07.89 Other chest pain (principal); R51 Headache; E11.9 Type 2 diabetes mellitus without complications; Z79.4 Long term (current) use of insulin
CPT/HCPCS: 70450; 71010; 80053; 82550; 84484; 85025; 85610; 85652; 85730; 86140; 93005; 96374; 96375; 99285; J2270; J2405

== ENCOUNTER 2017-08-27 19:12 | Emergency (ER) | payer MEDICAID ==
[~2017-08-27] VITALS: Ht 157.5 cm; Wt 65.0 kg
[~2017-08-27 19:12] MED LIST changes: +ABIL10TA8 PO; +BUTA1CAP PO; -MEDR4PAK PO; +MOBI15TA PO; -[UNRECOGNIZED DRUG - REMARK]; +cholesterol med PO
[2017-08-27 19:29] VITALS: BP 129/73; PULSE 71; RESP 18; TEMP 98.6; O2SAT 98
--- NOTE | 2017-08-27 20:53 | PD ---
HPI Chief Complaint: Pain: Acute or Chronic Time Seen by Provider: 20:39 Travel History International Travel<30 days: No Contact w/Intl Traveler<30days: No Traveled to known affect area: No History of Present Illness HPI 57-year-old female complains of right hip pain. Patient states the pain started yesterday. Patient denies any injury to the area. Patient states the pain is sharp pain started in the back of the hip with radiation to the right groin area and down the right leg. Patient states that the pain is sudden onset. Patient denies any aggravating factors. Patient states that the pain is worse with movement of the right hip joint. Patient denies any fever chills. Patient denies any dysuria frequency. Patient denies any vaginal discharge or bleeding. Patient denies no focal weakness or numbness of the extremity. On a scale from 1-10 the pain is a 7. Patient has history hypertension and diabetes. Patient states that her blood sugar has been in the 200 range recently. PFSH Past Medical History Hx Anticoagulant Therapy: No Bipolar Disorder: Yes Anxiety: Yes Depression: Yes Cardiovascular Problems: Yes (HTN) High Cholesterol: Yes Chemotherapy: No Cerebrovascular Accident: No Diabetes: Yes Patient Takes Glucophage: No Diminished Hearing: No Hypertension: Yes Psychiatric: Yes (schizophrenia) Respiratory: No Immunizations Current: Yes Schizophrenia: Yes Tetanus Vaccination: > 5 Years Influenza Vaccination: No Menopausal: Yes : 5 Para: 5 Past Surgical History Cholecystectomy: Yes Hysterectomy: No Social History Alcohol Use: No Tobacco Use: No Substance Use: No Allergies-Medications (Allergen,Severity, Reaction): Coded Allergies: codeine (Unverified Adverse Reaction, Intermediate, hives, 08/27/17) Reported Meds & Prescriptions Reported Meds & Active Scripts Active Robaxin (Methocarbamol) 750 Mg Tab 750 Mg PO QID Fioricet (Gprveozpzd-Beuadzgqtlkir-Bcuwqmyn) 50-300-40 Mg Cap 1-2 Cap PO Q6H PRN Reported Abilify (Aripiprazole) 10 Mg Tab Unknown Dose PO DAILY [cholesterol med] Unknown Dose PO DAILY Janumet (Sitagliptin-Metformin) 50-500 Mg Tab 1 Tab PO DAILY Lantus Inj (Insulin Glargine) 1,000 Unit/10 Ml Vial 35 Units SQ HS Review of Systems General / Constitutional: No: Fever Eyes: No: Visual changes HENT: No: Headaches Cardiovascular: No: Chest Pain or Discomfort Respiratory: No: Shortness of Breath Gastrointestinal: No: Abdominal Pain Genitourinary: No: Dysuria Musculoskeletal: Positive: Pain Skin: No Rash Neurologic: No: Weakness Psychiatric: No: Depression Endocrine: No: Polydipsia Hematologic/Lymphatic: No: Easy Bruising Physical Exam Narrative GENERAL: Well-nourished, well-developed patient. SKIN: Focused skin assessment warm/dry. HEAD: Normocephalic. EYES: No scleral icterus. No injection or drainage. NECK: Supple, trachea midline. No JVD or lymphadenopathy. CARDIOVASCULAR: Regular rate and rhythm without murmurs, gallops, or rubs. RESPIRATORY: Breath sounds equal bilaterally. No accessory muscle use. GASTROINTESTINAL: Abdomen soft, non-tender, nondistended. MUSCULOSKELETAL: Patient has mild to moderate tenderness on palpation of the right hip joint including posterior lateral anterior aspect the right hip joint. Full range of motion the right hip. Sensory motor function distally intact. BACK: Nontender without obvious deformity. No CVA tenderness. Neurologic exam normal. Data Data Last Documented VS Vital Signs Date Time Temp Pulse Resp B/P (MAP) Pulse Ox O2 Delivery O2 Flow Rate FiO2 08/27/17 19:29 98.6 71 18 129/73 (91) 98 Orders Orders Urinalysis - C+S If Indicated (08/27/17 20:32) Ed Urine Pregnancytest Poc (08/27/17 20:32) Hip, Uni(Ap&Lat) Wo Ap Pelvis (08/27/17 20:43) MDM Medical Decision Making Medical Screen Exam Complete: Yes Emergency Medical Condition: Yes Interpretation(s) Last Impressions Hip X-Ray 08/27/172042 Signed Impressions: CONCLUSION: No acute findings. Differential Diagnosis Differential diagnosis including bursitis, tendinitis, strain, fracture, dislocation. Narrative Course 57-year-old female with right hip pain. Diagnosis Primary Impression: Strain of right hip Qualified Codes: S76.011A - Strain of muscle, fascia and tendon of right hip, initial encounter Patient Instructions: General Instructions Additional Instructions: Take medications as needed for pain. Follow-up with personal physician and orthopedist if persistent problem. Med/Other Pt SpecificInfo: Prescription(s) given Scripts Meloxicam (Mobic) 15 Mg Tab 15 MG PO DAILY for Pain, #20 TAB 0 Refills Prov: Artur Urena MD 08/27/17 Methocarbamol (Robaxin) 750 Mg Tab 750 MG PO QID for Muscle Spasm, #40 TAB 0 Refills Prov: Artur Urena MD 08/27/17 Disposition: 01 DISCHARGE HOME Condition: Stable Artur Urena MD Aug 27, 2017 20:53
--- NOTE | 2017-08-27 21:31 | RADRPT ---
EXAM DATE: 08/27/2017 9:25 PM EDT AGE/SEX: 57 years / Female INDICATIONS: Right hip pain. No known trauma. CLINICAL DATA: This is the patient's initial encounter. Patient reports that signs and symptoms have been present for 3 days and indicates a pain score of 10/10. MEDICAL/SURGICAL HISTORY: . Hypertension. Diabetes. Tubal ligation. COMPARISON: No prior exams available for comparison. FINDINGS: Bony structures are intact and in normal alignment. Joints are intact without dislocation or signifi cant arthropathy. Osseous density is normal. Soft tissues are unremarkable. No radiopaque foreign bodies seen. CONCLUSION: No acute findings. Electronically signed by: Rubén Naranjo MD 08/27/2017 9:29 PM EDT
[2017-08-27] MEDS ORDERED: ROBA750T PO (22:40)
[2017-08-27] MEDS ORDERED: MOBI15TA PO (22:41)
[2017-08-27] MEDS ORDERED: IBUPROFEN 600 MG TAB PO ONE (22:45)
== END 2017-08-27 23:06 | disposition home or self-care (01) ==
LOC: NEPD 19:12
DX: S76.011A Strain of muscle, fascia and tendon of right hip, initial encounter (principal); E11.9 Type 2 diabetes mellitus without complications; F20.9 Schizophrenia, unspecified; F31.9 Bipolar disorder, unspecified; X58.XXXA Exposure to other specified factors, initial encounter; Z79.4 Long term (current) use of insulin
CPT/HCPCS: 73502; 99283